=== PATIENT | female | born 1950 | race Caucasian/White ===

== ENCOUNTER 2017-11-26 13:31 | Day surgery (SDC) | payer OTHER ==
[2017-11-26] MEDS ORDERED: MIDAZOLAM 1 MG/ML 2 ML INJ ×2 (15:42)
[2017-11-26] MEDS ORDERED: FENTAnyl 50 MCG/ML VIAL (15:42)
== END 2017-11-27 08:39 | disposition home or self-care (01) ==
LOC: GIL 13:31
DX: Z12.11 Encounter for screening for malignant neoplasm of colon (principal); K21.9 Gastro-esophageal reflux disease without esophagitis; K29.60 Other gastritis without bleeding; K63.5 Polyp of colon; K64.8 Other hemorrhoids; K64.4 Residual hemorrhoidal skin tags; Z90.49 Acquired absence of other specified parts of digestive tract; K62.5 Hemorrhage of anus and rectum
CPT/HCPCS: 43239; 88305; 88312